=== PATIENT | female | born 1990 | race Caucasian/White ===

== ENCOUNTER 2023-11-14 23:44 | Emergency (ER) | payer BC, SELFPAY ==
[2023-11-14 23:45] VITALS: BP 126/83; PULSE 86; RESP 16; TEMP 36.7; O2SAT 100
--- NOTE | 2023-11-15 01:07 | ED.GENADULT ---
HPI - General Adult General Chief complaint: Extremity Injury, Lower Stated complaint: r knee pain Time Seen by Provider: 11/15/23 00:54 Source: patient Mode of arrival: ambulatory Limitations: no limitations History of Present Illness HPI narrative: This is a 33-year-old female who presents to the ED for chief complaint of right knee pain beginning well work this evening. Reports she has had intermittent knee popping for years but tonight the pain came on more abruptly at work. Denies any fall or specific injury. Patient works at [employer] and has been working increased [place] slightly. Denies any rash, numbness, weakness. Related Data Allergies Allergy/AdvReac Type Severity Reaction Status Date / Time No Known Allergies Allergy Verified 11/15/23 00:55 Review of Systems Review of Systems: All systems as dictated in HPI Exam Narrative: GENERAL: Well-appearing, well-nourished, and in no acute distress. HEAD: Normocephalic, atraumatic. EYES: PERRLA and EOMI. ENT: Nares clear, no rhinorrhea or epistaxis. Mucous membranes moist. Oropharynx without tonsillar hypertrophy exudate or other lesions. NECK: Supple. No adenopathy or masses. CHEST: No respiratory distress. Clear to auscultation. No wheezes rales or rhonchi HEART: Regular rate and rhythm. No murmur heard. Normal peripheral pulses. ABDOMEN: Soft, nontender, nondistended, normal active bowel sounds. MSK: RLE: Positive patellar grind test. Patellofemoral instability on exam. Minimal joint line tenderness. No effusion. No deformity. No erythema or warmth LLE: Benign SKIN: Warm, dry, no rash. NEURO: Alert and oriented x3. No focal deficits. PSYCH: Normal mood and affect. Course Vital Signs Vital signs: Vital Signs Temperature 98.0 F 11/14/23 23:45 Pulse Rate 86 11/14/23 23:45 Respiratory Rate 16 11/14/23 23:45 Blood Pressure 126/83 11/14/23 23:45 Pulse Oximetry 100 11/14/23 23:45 Oxygen Delivery Room Air 11/14/23 23:45 Temperature 98.0 F 11/14/23 23:45 Pulse Rate 86 11/14/23 23:45 Respiratory Rate 16 11/14/23 23:45 Blood Pressure 126/83 11/14/23 23:45 Pulse Oximetry 100 11/14/23 23:45 Oxygen Delivery Room Air 11/14/23 23:45 Medical Decision Making MDM Narrative Medical decision making narrative: This is a 33-year-old female who presents to the ED with chief complaint of knee pain beginning at work tonight. Vitals are normal. Exam shows positive patellar grind test. No evidence of trauma or deformity. Neurovascularly intact distally. Shared decision making to avoid any further workup at this point. Do not feel x-ray would benefit the patient. Symptoms seem to be consistent with patellofemoral syndrome. Patient was given Rx for Toradol and instructed to follow-up with PCP. Pt will be discharged in stable condition. Return precautions given and supportive measures discussed. Pt is understanding and agreeable with plan for discharge and follow-up with PCP. Vital Signs Vital Signs: Vital Signs Temperature 98.0 F 11/14/23 23:45 Pulse Rate 86 11/14/23 23:45 Respiratory Rate 16 11/14/23 23:45 Blood Pressure 126/83 11/14/23 23:45 Pulse Oximetry 100 11/14/23 23:45 Oxygen Delivery Room Air 11/14/23 23:45 Temperature 98.0 F 11/14/23 23:45 Pulse Rate 86 11/14/23 23:45 Respiratory Rate 16 11/14/23 23:45 Blood Pressure 126/83 11/14/23 23:45 Pulse Oximetry 100 11/14/23 23:45 Oxygen Delivery Room Air 11/14/23 23:45 Discharge Plan Discharge Clinical Impression: Patella-femoral syndrome Patient Disposition: Home, Self-Care Condition: Stable Instructions: Antibiotic Form Additional Instructions: Your exam today shows inflammation around the patellar tendon. Please take Toradol as prescribed for pain control. Follow-up with PCP. If you have any new or worsening symptoms please return to the ER for further evaluation. Prescriptions:
[2023-11-15] MEDS: KETOROLAC 10 MG TABLET PO (01:27)
== END 2023-11-15 01:32 | disposition home or self-care (01) ==
PROVIDERS: Emergency Provider Physician Assistant
DX: M22.2X1 Patellofemoral disorders, right knee (principal)
CPT/HCPCS: 99283; A9270

== ENCOUNTER → 2023-11-17 11:30 | Outpatient (CLI) | payer BC, SELFPAY ==
--- NOTE | ~2023-11-17 | XR_ITS ---
XR knee RT 3V 11/17/2023 12:28 INDICATION: Right knee pain and swelling PROCEDURE: 3 views right knee COMPARISON: No prior studies for comparison. FINDINGS: Fracture, dislocation or subluxation is not identified. The soft tissues appear within norm al limits. No foreign bodies are identified. IMPRESSION: 1: NO ACUTE BONE OR JOINT ABNORMALITY IDENTIFIED. Reviewed, dictated and finalized at location B.
== END ==
PROVIDERS: PCP Emergency Medicine; Visit Provider Emergency Medicine
DX: M25.561 Pain in right knee (principal); M79.89 Other specified soft tissue disorders
CPT/HCPCS: 73562

== ENCOUNTER 2024-05-14 00:37 | Emergency (ER) | payer BC, SELFPAY ==
--- NOTE | ~2024-05-14 | XR_ITS ---
Right Knee Technique: AP, lateral, and oblique views were obtained. Clinical History: Pain Findings: No fracture or dislocation is seen. Osseous alignment is anatomic. Joint spaces are preserv ed without degenerative or erosive change. Soft tissues are unremarkable. No joint effusion is seen. Impression: Unremarkable right knee radiographs. Reviewed, dictated and finalized at [facility]. Impression: Unremarkable right knee radiographs.
[2024-05-14 00:38] VITALS: BP 133/97; PULSE 84; RESP 14; TEMP 36.4; O2SAT 98
--- NOTE | 2024-05-14 00:44 | PC.NURSE ---
pt verbalized eating an edible and then leg giving out but friends told her it wasnt the edible that made my knees weak.
--- NOTE | 2024-05-14 03:46 | ED.GENADULT ---
HPI - General Adult General Chief complaint: Extremity Injury, Lower Stated complaint: right leg swelling Time Seen by Provider: 05/14/24 02:38 History of Present Illness HPI narrative: Patient is a 33-year-old female who presents to the emergency department this evening complaining of right knee and slipped. Patient states that as she was falling she did catch herself but since the fall she has been having some right knee pain and feels as though she pulled some muscle in her right thigh as at that area feels tight. Patient has been able to ambulate without any difficulty. Denies any additional symptoms or concerns at this time. Related Data Allergies Allergy/AdvReac Type Severity Reaction Status Date / Time No Known Allergies Allergy Verified 11/15/23 00:55 Review of Systems Review of Systems: All systems are reviewed and are negative unless stated otherwise in the HPI. Exam Narrative: General: Alert, awake, afebrile, in no acute distress. HEENT: PERRL, no rhinorrhea, no post nasal drip, oropharynx clear. Cardiovascular: Regular rate and rhythm, no murmurs, rubs or gallops, no peripheral edema. Respiratory: Clear to auscultation bilaterally, no tachypnea, no wheezing, no rhonchi, no rubs, no respiratory distress. Abdomen: Soft, nontender, nondistended, no rebound, no guarding, no peritoneal signs. Musculoskeletal: No joint swelling or deformity, normal muscle tone, intact bilateral lower extremity hip flexors and knee extension, intact full range of motion at the right knee joint. Skin: No rashes or petechia, no signs of infection. Neurological: Alert and oriented to person, place, and time. Follows all commands. No focal deficits, speech is clear and fluent. Course Vital Signs Vital signs: Vital Signs Temperature 97.6 F 05/14/24 00:38 Pulse Rate 84 05/14/24 00:38 Respiratory Rate 14 05/14/24 00:38 Blood Pressure 133/97 H 05/14/24 00:38 Pulse Oximetry 98 05/14/24 00:38 Oxygen Delivery Room Air 05/14/24 00:38 Temperature 97.6 F 05/14/24 00:38 Pulse Rate 84 05/14/24 00:38 Respiratory Rate 14 05/14/24 00:38 Blood Pressure 133/97 H 05/14/24 00:38 Pulse Oximetry 98 05/14/24 00:38 Oxygen Delivery Room Air 05/14/24 00:38 Medical Decision Making MDM Narrative Medical decision making narrative: The patient was evaluated by myself in the emergency department. History is obtained from patient who is an independent historian and physical exam was performed. External medical records were reviewed at this time. Patient was administered 15 mg of IM Toradol for pain. Imaging studies obtained included right knee x-ray which was independently interpreted by me revealing no acute process, which is pending final radiology interpretation. Patient was informed that if she continues to have pain that she needs to follow-up with orthopedic or her primary care physician as she will need an outpatient MRI for further evaluation of any ligament or meniscal injury and patient is agreeable. Differential diagnosis considerations include ACL versus PCL injury, meniscal injury, fracture, dislocation. Comorbidities impacting this visit include none. I have evaluated and discussed social determinants of health with the patient that could potentially impact subsequent diagnosis and treatment plans. On repeat assessment of the patient, reevaluation revealed that the patient is doing well and is in no acute distress. Patient symptoms have improved since she arrived to our emergency department. Repeat vital signs were all reviewed and noted to be stable. Differential diagnosis and treatment plan were discussed with the patient at bedside. Patient agrees with discussion and after shared medical decision making agrees with discharge. All questions were answered to the patient's satisfaction. Patient will follow up with Orthopedics in 3-5 days. Patient was provided with strict return precautions and
[2024-05-14] MEDS: KETOROLAC 15 MG/ML VIAL (*BKC) IM (03:52)
== END 2024-05-14 04:12 | disposition home or self-care (01) ==
PROVIDERS: Emergency Provider Emergency Medicine; PCP Emergency Medicine
DX: M23.91 Unspecified internal derangement of right knee (principal); S89.91XA Unspecified injury of right lower leg, initial encounter; W01.0XXA Fall on same level from slipping, tripping and stumbling without subsequent striking against object, initial encounter
CPT/HCPCS: 73564; 96372; 99283; J1885

== ENCOUNTER 2024-09-01 13:46 | Emergency (ER) | payer BC, SELFPAY ==
--- NOTE | ~2024-09-01 | XR_ITS ---
EXAMINATION: XR chest 2V DATE: 09/01/2024 16:29 INDICATION: Shortness of breath, cough and fever TECHNIQUE: PA and lateral views of the chest were obtained. COMPARISON: None FINDINGS: No airspace opacity left upper lung zone. No other airspace opacities, pulmonary edema, pleural effus ion or pneumothorax. The cardiomediastinal silhouette is normal. Mild upper thoracic dextrocurvature. IMPRESSION: 1. Airspace opacity in the left upper lung zone suspicious for pneumonia. Reviewed, dictated and finalized at location B. [facility]
[2024-09-01 13:48] VITALS: BP 132/73; PULSE 108; RESP 18; TEMP 38.1; O2SAT 97
--- OUTSIDE RECORDS SUMMARY | 2024-09-01 13:49 | XMS_ITS | Clinical Summary ---
Author Organization [facility] Address [address] [place] [address] Care Team Providers Care Supervisor Car Installations Name Role Phone No, Physician Primary Care Provider [phone] Allergies No known active allergies Medications ondansetron ODT (ZOFRAN-ODT) 4 mg disintegrating tablet Take 1 tablet (4 mg total) by mouth every 8 (eight) hours as needed for nausea or vomiting 20 tablet 4 Active ibuprofen (ADVIL,MOTRIN) 600 mg tabletIndications:P ain Take 1 tablet (600 mg total) by mouth 3 (three) times a day Take with food. 30 tablet 4 Active Active Problems No known active problems Social History Tobacco Use Types Packs/Day Years Used Date Smoking Tobacco: Never Personal Safety Answer Date Recorded Have you ever been in or are you currently in a harmful physical or emotional relationship or is someone making you feel afraid or unsafe? 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 Gender Identity Not on file Sexual Orientation Not on file Obstetrics History Para Term AB IAB SAB Ectopic Multiple Livin g Live Births 4 3 3 0 1 1 0 0 0 1 1 Date Outcome GA Total Labor Labor/2nd/3rd Weight Sex Type Anes PTL Mary A1 A5 Name Clin Term Term IAB 2019 Term 39w 2d 0h 01m 0h 01m 3.141 kg (6 lb 14.8 oz) F CS-LT ranv Spinal N Livin g 9 9 DENG, GIRLA MARGO Marcella , Pippa Elizab eth, MD Complications:None Delivery Location:This Facil ity ([facility] PROCEDURE) Last Filed Vital Signs Vital Sign Reading Time Taken Comments Blood Pressure 111/76 12/21/2023 7:15 AM CDT Pulse 74 12/21/2023 7:15 AM CDT Temperature 36.6 C (97.9 F) 12/21/2023 4:47 AM CDT Respiratory Rate 18 12/21/2023 4:47 AM CDT Oxygen Saturation 99% 12/21/2023 7:15 AM CDT Inhaled Oxygen Concentration - - Weight 85.7 kg (189 lb) 12/21/2023 4:47 AM CDT Height 157.5 cm (5' 2 ) 12/21/2023 4:47 AM CDT Body Mass Index 34.57 12/21/2023 4:47 AM CDT Plan of Treatment Health Maintenance Due Date Last Done Comments Cervical Cancer Screening 1992 Depression Screening 1992 Hepatitis C Screening 1992 Varicella Vaccines (1 of 2 - 13+ 2-dose series) 2005 Regular Well Visit/Exam 18-64 2010 Covid-19 Vaccine ( season) 2024 08/07/2021, 06/12/2021 Influenza Vaccine (#1) 2024 DTaP/Tdap/Td Vaccine (8 - Td or Tdap) 04/21/2027 04/21/2017, 12/14/2014, 05/10/1997, Additional history exists Hepatitis B Screening Completed 07/06/1994 , 02/07/1993, 1992 HPV Vaccines Completed 01/17/2008, 02/23/2007 Pneumococcal vaccine <65 Aged Out No longer eligible based on patient's age to complete this topic Insurance [employer] [facility] PLAN [place] [id number] [facility] PLAN [place] [id number] [facility] PLAN [employer] [place] [facility] Advance Directives For more information, please contact: [phone] * Full Code (Latest Code Status on File) Date Activated Date Inactivated Comments 03/07/2020 3:22 PM 03/09/2020 6:42 PM * Full Code Date Activated Date Inactivated Comments 03/07/2020 10:07 AM 03/07/2020 3:21 PM Full CPR in case of cardiopulmonary arrest Care Teams Supervisor Car Installations Relationship Specialty Start Date End Date No, Physician PCP - General 01/09/20
--- OUTSIDE RECORDS SUMMARY | 2024-09-01 13:49 | XMS_ITS | Referral Summary ---
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 Gender Identity Not on file Sexual Orientation Not on file Last Filed Vital Signs Vital Sign Reading [...] 12/21/2023 4:47 AM CDT Plan of Treatment Not on file Insurance [facility] Advance Directives For more information, please contact: [phone] * Full Code (Latest Code Status on File) Date Activated Date Inactivated Comments 03/07/2020 3:22 PM 03/09/2020 6:42 PM * Full Code Date Activated Date Inactivated Comments 03/07/2020 10:07 AM 03/07/2020 3:21 PM Full CPR in case of cardiopulmonary arrest Care Teams Automobile Service Station Mechanic Relationship Specialty Start Date End Date No, Physician PCP - General 01/09/20
--- NOTE | 2024-09-01 14:10 | ED_ITS ---
HPI - General Adult General Chief complaint: Unspecified <Lauryn Calles PA-C - Last Filed: 09/01/24 14:11> Stated complaint: weakness, cough, fever <Lauryn Calles PA-C - Last Filed: 09/01/24 14:11> Time Seen by Provider: 09/01/24 15:49 <Lauryn Calles PA-C - Last Filed: 09/01/24 14:11> Focused HPI: 34-year-old female presents emergency department for URI symptoms for the past day. Patient reporting cough, congestion, body aches, chills, generalized malaise. No recent sick contacts. No known fever but does states she feels feverish. GENERAL: Well-appearing, well-nourished, and in no acute distress. HEAD: Normocephalic, atraumatic. CHEST: Clear to auscultation. ?No respiratory distress. HEART: Regular rate and rhythm.? NEURO: ?Alert and oriented x3. Patient screened in triage and initial orders placed.? ?Additional care and disposition to be based upon?diagnostic testing and treatment. <Lauryn Calles PA-C - Last Filed: 09/01/24 14:11> History of Present Illness HPI narrative: I agree with the above HPI <Keshav Tabares MD - Last Filed: 09/01/24 19:23> Related Data Allergies/adverse reactions: Allergies Allergy/AdvReac Type Severity Reaction Status Date / Time No Known Allergies Allergy Verified 09/01/24 17:09 <Lauryn Calles PA-C - Last Filed: 09/01/24 14:11> Review of Systems 2 Review of Systems: All systems reviewed & are unremarkable except as noted in HPI and below <Keshav Tabares MD - Last Filed: 09/01/24 19:23> Exam 2 Narrative: APPEARANCE: Well appearing, no pain, no distress, well-nourished. HEAD: normocephalic, atraumatic. EYES: PERRLA/EOMI, conjunctivae clear. NOSE: Normal no drainage EARS:TMS clear with good light reflex. THROAT: Pharynx clear, no exudate. NECK: Supple. No adenopathy, no masses. RESPIRATORY: Airway patent, respirations nonlabored. Clear to auscultation bilaterally, no rales, rhonchi, wheezing. CARDIOVASCULAR: Regular rate and rhythm without murmurs rubs or gallops. ABDOMINAL: Soft, nontender, nondistended, normal bowel sounds MUSCULOSKELETAL: Moves all extremities. Strength/ROM intact, No edema, No calf tenderness. NEURO: Alert. Cranial nerves II through XII intact. Good gait. Good coordination SKIN: Warm, dry. Normal Color <Keshav Tabares MD - Last Filed: 09/01/24 19:23> Course Vital Signs Vital signs: Vital Signs Temperature 100.6 F H 09/01/24 13:48 Pulse Rate 108 H 09/01/24 13:48 Respiratory Rate 18 09/01/24 13:48 Blood Pressure 132/73 09/01/24 13:48 Pulse Oximetry 97 09/01/24 13:48 Oxygen Delivery Room Air 09/01/24 13:48 Temperature 98.1 F 09/01/24 19:09 Pulse Rate 100 09/01/24 19:09 Respiratory Rate 18 09/01/24 19:09 Blood Pressure 112/74 09/01/24 19:09 Pulse Oximetry 99 09/01/24 19:09 Oxygen Delivery Room Air 09/01/24 13:48 <Lauryn Calles PA-C - Last Filed: 09/01/24 14:11> Vital Signs Temperature 100.6 F H 09/01/24 13:48 Pulse Rate 108 H 09/01/24 13:48 Respiratory Rate 18 09/01/24 13:48 Blood Pressure 132/73 09/01/24 13:48 Pulse Oximetry 97 09/01/24 13:48 Oxygen Delivery Room Air 09/01/24 13:48 Temperature 98.1 F 09/01/24 19:09 Pulse Rate 100 09/01/24 19:09 Respiratory Rate 18 09/01/24 19:09 Blood Pressure 112/74 09/01/24 19:09 Pulse Oximetry 99 09/01/24 19:09 Oxygen Delivery Room Air 09/01/24 13:48 <Keshav Tabares MD - Last Filed: 09/01/24 19:23> Medical Decision Making MDM Narrative Medical decision making narrative: 34-year-old female presents emergency department for evaluation for weakness cough and fever. Patient did have a temperature of 101.2 ? and was treated with Tylenol. UA was concerning for infection and patient was started on Levaquin. Patient was negative for influenza RSV and for COVID, chest x-ray was concerning for underlying pneumonia and this will be covered body Levaquin. Patient was updated results of workup. Patient was comfortable plan for discharge and close follow-up. Patient was educated on reasons to return to the emergency department. All questions concerns were addressed. <Keshav Tabares MD - Last Filed: 09/01/24 19:23> Differential Diagnosis Differential Diagnosis: COVID, RSV, influenza, pneumonia, UTI <Keshav Tabares MD - Last Filed: 09/01/24 19:23> Vital Signs Vital Signs: Vital Signs Temperature 100.6 F H 09/01/24 13:48 Pulse Rate 108 H 09/01/24 13:48 Respiratory Rate 18 09/01/24 13:48 Blood Pressure 132/73 09/01/24 13:48 Pulse Oximetry 97 09/01/24 13:48 Oxygen Delivery Room Air 09/01/24 13:48 Temperature 98.1 F 09/01/24 19:09 Pulse Rate 100 09/01/24 19:09 Respiratory Rate 18 09/01/24 19:09 Blood Pressure 112/74 09/01/24 19:09 Pulse Oximetry 99 09/01/24 19:09 Oxygen Delivery Room Air 09/01/24 13:48 <Lauryn Calles PA-C - Last Filed: 09/01/24 14:11> Vital Signs Temperature 100.6 F H 09/01/24 13:48 Pulse Rate 108 H 09/01/24 13:48 Respiratory Rate 18 09/01/24 13:48 Blood Pressure 132/73 09/01/24 13:48 Pulse Oximetry 97 09/01/24 13:48 Oxygen Delivery Room Air 09/01/24 13:48 Temperature 98.1 F 09/01/24 19:09 Pulse Rate 100 09/01/24 19:09 Respiratory Rate 18 09/01/24 19:09 Blood Pressure 112/74 09/01/24 19:09 Pulse Oximetry 99 09/01/24 19:09 Oxygen Delivery Room Air 09/01/24 13:48 <Keshav Tabares MD - Last Filed: 09/01/24 19:23> Lab Data Lab results reviewed: Yes I reviewed the patient's lab results. <Keshav Tabares MD - Last Filed: 09/01/24 19:23> Result diagrams: 09/01/24 16:49 09/01/24 16:49 <Lauryn Calles PA-C - Last Filed: 09/01/24 14:11> Labs: Lab Results 09/01/24 09/01/24 09/01/24 Range/Units 14:27 16:47 16:49 WBC 10.4 H (4.5-10.0) K/mm3 RBC 5.15 (4.2-5.4) M/mm3 Hgb 11.8 L (12.0-15.0) g/dL Hct 38.2 (37.0-47.0) % MCV 74.2 L (80-100) fl MCH 22.9 L (26-34) pg MCHC 30.9 L (32-36) g/dl RDW 17.7 H (11.5-14.5) % Plt Count 218 (150-375) k/mm3 MPV 10.1 (7.4-10.4) fl Immature Gran % (Auto) 0.4 (0-0.5) % Neut % (Auto) 82.2 H (45.5-73.1) % Lymph % (Auto) 12.5 L (18.3-44.2) % [place] % (Auto) 4.8 (2.6-8.5) % Eos % (Auto) 0.0 (0-4.4) % Baso % (Auto) 0.1 L (0.2-1.2) % Lymph # (Auto) 1.30 (0.9-3.2) K/mm3 [place] # (Auto) 0.5 (0.1-0.6) K/mm3 Eos # (Auto) 0.0 (0-0.3) K/mm3 Baso # (Auto) 0.0 (0.0-0.1) K/mm3 Abs Immat Gran (auto) 0.04 H (0.00-0.031) K/mm3 Absolute Neuts (auto) 8.6 H (1.3-6.7) K/mm3 Absolute Nucleated RBC 0.000 (0.0-0.012) K/mm3 Nucleated RBC % 0.0 (0.0-0.2) % Platelet Estimate Adequate (Adequate) Hypochromasia 1+ Anisocytosis 2+ Microcytosis 1+ (NORMAL) Schistocytes None seen PT 14.5 (11.1-14.7) Seconds INR 1.1 APTT 23.4 (22.3-36.8) Seconds Sodium 138 (137-145) mmol/L Potassium 3.7 (3.4-5.0) mmol/L Chloride 104 (98-107) mmol/L Carbon Dioxide 21 L (22-30) mmol/L Anion Gap 13 H (4-12) mmol/L BUN 10 (7-17) mg/dL Creatinine 0.78 (0.7-1.0) mg/dL Estim Creat Clear Calc 89 ml/min Estimated GFR > 60 (59 - ) Glucose 126 H (65-110) mg/dL Calcium 9.1 (8.4-10.2) mg/dL Total Bilirubin 0.7 (0.2-1.3) mg/dL AST 27 (14-36) U/L ALT 22 (6-35) U/L Alkaline Phosphatase 93 (38-126) U/L Total Protein 8.0 (6.3-8.2) g/dL Albumin 4.5 (3.5-5.1) g/dL Urine Color Dark yellow (Yellow) Urine Appearance Turbid H (Clear) Urine pH 5.5 (5.0-9.0) Ur Specific [place] 1.025 (1.001-1.035) Urine Protein 1+ H (Negative) mg/dL Urine Glucose (UA) Negative (Negative) mg/dL Urine Ketones 1+ H (Negative) mg/dL Ur Blood (Man) Negative (Negative) Urine Nitrate Negative (Negative) Urine Bilirubin Negative (Negative) Urine Urobilinogen 1.0 (<2.0) mg/dL Add Ur Microanalysis Reviewed Leukocyte Esterase Rfl 3+ H (Negative) JENNIFER/UL Urine RBC 0-2 (0-2) /hpf Urine WBC 51-100 H (0-3) /hpf Ur Squamous Epith Cells Many H (Few) /hpf Urine Bacteria 4+ /hpf Urine Casts 3-5 POC Urine HCG, Qual Negative (Negative) Influenza A (RT-PCR) Negative (Negative) Influenza B (RT-PCR) Negative (Negative) RSV (RT-PCR) Negative (Negative) SARS-CoV-2 RNA (RT-PCR) Negative (Negative) <Lauryn Calles PA-C - Last Filed: 09/01/24 14:11> Lab Results 09/01/24 09/01/24 09/01/24 Range/Units 14:27 16:47 16:49 WBC 10.4 H (4.5-10.0) K/mm3 RBC 5.15 (4.2-5.4) M/mm3 Hgb 11.8 L (12.0-15.0) g/dL Hct 38.2 (37.0-47.0) % MCV 74.2 L (80-100) fl MCH 22.9 L (26-34) pg MCHC 30.9 L (32-36) g/dl RDW 17.7 H (11.5-14.5) % Plt Count 218 (150-375) k/mm3 MPV 10.1 (7.4-10.4) fl Immature Gran % (Auto) 0.4 (0-0.5) % Neut % (Auto) 82.2 H (45.5-73.1) % Lymph % (Auto) 12.5 L (18.3-44.2) % [place] % (Auto) 4.8 (2.6-8.5) % Eos % (Auto) 0.0 (0-4.4) % Baso % (Auto) 0.1 L (0.2-1.2) % Lymph # (Auto) 1.30 (0.9-3.2) K/mm3 [place] # (Auto) 0.5 (0.1-0.6) K/mm3 Eos # (Auto) 0.0 (0-0.3) K/mm3 Baso # (Auto) 0.0 (0.0-0.1) K/mm3 Abs Immat Gran (auto) 0.04 H (0.00-0.031) K/mm3 Absolute Neuts (auto) 8.6 H (1.3-6.7) K/mm3 Absolute Nucleated RBC 0.000 (0.0-0.012) K/mm3 Nucleated RBC % 0.0 (0.0-0.2) % Platelet Estimate Adequate (Adequate) Hypochromasia 1+ Anisocytosis 2+ Microcytosis 1+ (NORMAL) Schistocytes None seen PT 14.5 (11.1-14.7) Seconds INR 1.1 APTT 23.4 (22.3-36.8) Seconds Sodium 138 (137-145) mmol/L Potassium 3.7 (3.4-5.0) mmol/L Chloride 104 (98-107) mmol/L Carbon Dioxide 21 L (22-30) mmol/L Anion Gap 13 H (4-12) mmol/L BUN 10 (7-17) mg/dL Creatinine 0.78 (0.7-1.0) mg/dL Estim Creat Clear Calc 89 ml/min Estimated GFR > 60 (59 - ) Glucose 126 H (65-110) mg/dL Calcium 9.1 (8.4-10.2) mg/dL Total Bilirubin 0.7 (0.2-1.3) mg/dL AST 27 (14-36) U/L ALT 22 (6-35) U/L Alkaline Phosphatase 93 (38-126) U/L Total Protein 8.0 (6.3-8.2) g/dL Albumin 4.5 (3.5-5.1) g/dL Urine Color Dark yellow (Yellow) Urine Appearance Turbid H (Clear) Urine pH 5.5 (5.0-9.0) Ur Specific [place] 1.025 (1.001-1.035) Urine Protein 1+ H (Negative) mg/dL Urine Glucose (UA) Negative (Negative) mg/dL Urine Ketones 1+ H (Negative) mg/dL Ur Blood (Man) Negative (Negative) Urine Nitrate Negative (Negative) Urine Bilirubin Negative (Negative) Urine Urobilinogen 1.0 (<2.0) mg/dL Add Ur Microanalysis Reviewed Leukocyte Esterase Rfl 3+ H (Negative) JENNIFER/UL Urine RBC 0-2 (0-2) /hpf Urine WBC 51-100 H (0-3) /hpf Ur Squamous Epith Cells Many H (Few) /hpf Urine Bacteria 4+ /hpf Urine Casts 3-5 POC Urine HCG, Qual Negative (Negative) Influenza A (RT-PCR) Negative (Negative) Influenza B (RT-PCR) Negative (Negative) RSV (RT-PCR) Negative (Negative) SARS-CoV-2 RNA (RT-PCR) Negative (Negative) <Keshav R. Rayshawn, MD - Last Filed: 09/01/24 19:23> Discharge Plan Discharge Clinical Impression: Pneumonia, UTI (urinary tract infection) <RADHA Priest Last Filed: 09/01/24 14:11> Patient Disposition: Home, Self-Care <Lauryn Calles PA-C - Last Filed: 09/01/24 14:11> Condition: Stable <Lauryn Calles PA-C - Last Filed: 09/01/24 14:11> Instructions: Antibiotic Form, Urinary Tract Infection in Women (DC), Pneumonia (ED) <RADHA Priest Last Filed: 09/01/24 14:11> Additional Instructions: Your being started on antibiotics to cover both the urinary tract infection and a pneumonia. Tylenol and ibuprofen for fever control. Have close follow-up with your primary care physician. Drink plenty of fluids. If you have any worsening symptoms then please call or return to the emergency department. Albuterol inhaler for cough and shortness breath, Tessalon Perles for cough. Pyridium as needed for urinary symptoms. <Lauryn Calles PA-C - Last Filed: 09/01/24 14:11> Patient Language: Dutch <Lauryn Calles PA-C - Last Filed: 09/01/24 14:11> Prescriptions: New cyclobenzaprine 10 mg tablet 10 mg PO BID PRN (Reason: muscle spasm) Qty: 14 0RF phenazopyridine [Pyridium] 100 mg tablet 100 mg PO TID PRN (Reason: pain) Qty: 6 0RF benzonatate 100 mg capsule 100 mg PO TID PRN (Reason: cough) Qty: 14 0RF albuterol sulfate 90 mcg/actuation HFA aerosol inhaler 1 puff inhalation QID Qty: 6.7 0RF levofloxacin 750 mg tablet 750 mg PO DAILY 7 Days Qty: 7 0RF No Action ketorolac 10 mg tablet 10 mg PO Q8H 5 Days Qty: 15 0RF methocarbamol 750 mg tablet 750 mg PO HS PRN (Reason: muscle spasm) Qty: 10 0RF <Lauryn Calles PA-C - Last Filed: 09/01/24 14:11> Follow-up/Referrals: Jose Francisco Perez MD [Primary Care Provider] - <Lauryn Calles PA-C - Last Filed: 09/01/24 14:11>
[2024-09-01 15:10] LABS: Influenza A QL RT-PCR Negative (Negative); Influenza B QL RT-PCR Negative (Negative); RSV RNA, RT-PCR Negative (Negative); SARS-CoV-2 RNA PCR Negative (Negative)
--- OUTSIDE RECORDS SUMMARY | 2024-09-01 15:55 | XMS_ITS | Clinical Summary ---
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 Gender Identity Not on file Sexual Orientation [...] age to complete this topic Insurance ID[facility] [place] [id number] [facility] [place] [id number] [facility] PL[facility] [place]ODIT CHARLES [facility] Advance Directives For more information, please contact: [phone] * Full Code (Latest Code Status on File) Date Activated Date Inactivated Comments 03/07/2020 3:22 PM 03/09/2020 6:42 PM * Full Code Date Activated Date Inactivated Comments 03/07/2020 10:07 AM 03/07/2020 3:21 PM Full CPR in case of cardiopulmonary arrest Care Teams Manager Pricing Relationship Specialty Start Date End Date No, Physician PCP - General 01/09/20
--- OUTSIDE RECORDS SUMMARY | 2024-09-01 15:55 | XMS_ITS | Referral Summary ---
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 Gender Identity Not on file Sexual Orientation [...] Plan of Treatment Not on file Insurance [facility] Advance Directives For more information, please contact: [phone] * Full Code (Latest Code Status on File) Date Activated Date Inactivated Comments 03/07/2020 3:22 PM 03/09/2020 6:42 PM * Full Code Date Activated Date Inactivated Comments 03/07/2020 10:07 AM 03/07/2020 3:21 PM Full CPR in case of cardiopulmonary arrest Care Teams Support Clerk Relationship Specialty Start Date End Date No, Physician PCP - General 01/09/20
[2024-09-01 16:09] VITALS: BP 129/82; PULSE 100; RESP 20; TEMP 38.4; O2SAT 100
[2024-09-01 16:49] LABS: BEDSIDEPREGUCG Negative (Negative)
[2024-09-01 16:51] VITALS: RESP 20; O2SAT 98
[2024-09-01 16:55] VITALS: PULSE 108
[2024-09-01 16:57] LABS: Basophils Percent Auto 0.1 % (0.2-1.2); Hematocrit 38.2 % (37.0-47.0); Hemoglobin 11.8 g/dL (12.0-15.0); Immature Granulocyte Absolute 0.04 K/mm3 (0.00-0.031); Immature Granulocyte Percent A 0.4 % (0-0.5); Lymphocytes Percent Auto 12.5 % (18.3-44.2); Mean Corpuscular HGB Conc 30.9 g/dl (32-36); Mean Corpuscular Hemoglobin 22.9 pg (26-34); Mean Corpuscular Volume 74.2 fl (80-100); Mean Platelet Volume 10.1 fl (7.4-10.4); Monocytes Absolute Auto 0.5 K/mm3 (0.1-0.6); Monocytes Percent Auto 4.8 % (2.6-8.5); Neutrophils Absolute Auto 8.6 K/mm3 (1.3-6.7); Neutrophils Percent Auto 82.2 % (45.5-73.1); Platelet Count Result 218 k/mm3 (150-375); Red Blood Count 5.15 M/mm3 (4.2-5.4); Red Cell Distribution Width 17.7 % (11.5-14.5); White Blood Count 10.4 K/mm3 (4.5-10.0)
[2024-09-01] MEDS: SODIUM CHLORIDE 0.9% IV 1,000 ML 999 ML IV CONT (17:04)
[2024-09-01] MEDS: ACETAMINOPHEN 500 MG TABLET 1000 MG PO (17:04)
[2024-09-01 17:08] VITALS: BP 120/82; PULSE 103; RESP 20; O2SAT 100
[2024-09-01 17:12] LABS: Add Urine Microscopic? YES; Appearance Urine Turbid (Clear); Bacteria Urine 4+ /hpf; Bilirubin Urine Negative (Negative); Blood Urine Negative (Negative); Color Urine Dark Yellow (Yellow); Glucose Urine UA Negative (Negative); INR 1.1; Ketones Urine 1+ mg/dL (Negative); Leukocyte Esterase Ur 3+ LEU/UL (Negative); Need Manual Microscopic Reviewed; Nitrate Urine Negative (Negative); Protein Urine 1+ mg/dL (Negative); Prothrombin Time 14.5 Seconds (11.1-14.7); RBC Urine 0-2 /hpf (0-2); Specific Grav Ur 1.025 (1.001-1.035); Squamous Epithelial Cell Urine Many /hpf (Few); WBC Urine 51-100 /hpf (0-3); pH Urine 5.5 (5.0-9.0)
[2024-09-01 17:13] LABS: Partial Thromboplastin Time 23.4 Seconds (22.3-36.8)
[2024-09-01 17:14] LABS: Alanine Aminotransferase 22 U/L (6-35); Albumin Level 4.5 g/dL (3.5-5.1); Alkaline Phosphatase 93 U/L (38-126); Anion Gap 13 mmol/L (4-12); Aspartate Amino Transferase 27 U/L (14-36); Bilirubin,Total 0.7 mg/dL (0.2-1.3); Blood Urea Nitrogen 10 mg/dL (7-17); Calcium 9.1 mg/dL (8.4-10.2); Carbon Dioxide 21 mmol/L (22-30); Chloride 104 mmol/L (98-107); Estimated CRCL calculation 89 ml/min; Estimated Glomerular Filt Rate > 60; Glucose 126 mg/dL (65-110); Potassium 3.7 mmol/L (3.4-5.0); Sodium 138 mmol/L (137-145)
[2024-09-01 17:33] LABS: Platelet Estimate Adequate (Adequate); Schistocytes None Seen
[2024-09-01 17:34] LABS: Anisocytosis 2+; Hypochromasia 1+; Microcytosis 1+ (NORMAL)
[2024-09-01] MEDS: levoFLOXacin 500 MG/D5W 100 ML 500 MG/100 ML BAG 100 MG IVPB (18:02)
[2024-09-01 19:09] VITALS: BP 112/74; PULSE 100; RESP 18; TEMP 36.7; O2SAT 99
== END 2024-09-01 19:16 | disposition home or self-care (01) ==
PROVIDERS: Physician Assistant; Emergency Provider Emergency Medicine; PCP Emergency Medicine
DX: J18.9 Pneumonia, unspecified organism (principal); N39.0 Urinary tract infection, site not specified; Z20.822 Contact with and (suspected) exposure to COVID-19
CPT/HCPCS: 36415; 71046; 80053; 81001; 81025; 85025; 85610; 85730; 87637; 96361; 96365; 99284; A9270; J1956; J7030